=== PATIENT | female | born 1970 | race Caucasian/White ===

== ENCOUNTER 2017-10-26 16:53 | Emergency (ER) | payer MEDICARE ==
--- NOTE | 2017-10-26 17:58 | UC ---
Shoulder Pain HPI - HPI Summary HPI Summary: left shoulder pain for three days no known injury or trauma, she thinks she has been sleeping on it wrong, but cant move it well, mild swelling over the joint. denies need for pain medication. patient is also new to area and has run out of her BP meds. - History of Current Complaint Chief Complaint: UCUpperExtremity Stated Complaint: SHOULDER INJURY Time Seen by Provider: 10/26/17 17:49 Hx Obtained From: Patient Hx Last Menstrual Period: hysterectomy ?: No Onset/Duration: Sudden Onset, Lasting Days - 3 Timing: Constant Severity Initially: Severe Severity Currently: Severe Pain Intensity: 8 Aggravating Factor(s): Movement, Lifting, Flexion, Abduction Alleviating Factor(s): Nothing Associated Signs And Symptoms: Positive: Swelling, Weakness - Risk Factors DVT Risk Factors: Smoking - Allergies/Home Medications Allergies/Adverse Reactions: Allergies Allergy/AdvReac Type Severity Reaction Status Date / Time amoxicillin Allergy Intermediate Hives Verified 10/26/17 17:11 Penicillins Allergy Intermediate Hives Verified 10/26/17 17:11 PMH/Surg Hx/FS Hx/Imm Hx Previously Healthy: No Cardiovascular History: Hypertension - Surgical History Surgical History: Yes Surgery Procedure, Year, and Place: 8 back surguries - Social History Alcohol Use: Rare Substance Use Type: None Smoking Status (MU): Heavy Every Day Tobacco Smoker Length of Time of Smoking/Using Tobacco: 35 Review of Systems Constitutional: Negative Skin: Negative Eyes: Negative ENT: Negative Respiratory: Negative Cardiovascular: Negative Gastrointestinal: Negative Genitourinary: Negative Motor: Negative Neurovascular: Negative Musculoskeletal: Arthralgia, Decreased ROM, Edema, Myalgia Neurological: Negative Psychological: Negative Is Patient Immunocompromised?: No All Other Systems Reviewed And Are Negative: Yes Physical Exam Triage Information Reviewed: Yes Appearance: Ill-Appearing, Pain Distress, Obese Vital Signs: Initial Vital Signs Temp 97.1 F 10/26/17 17:03 Pulse 83 10/26/17 17:03 Resp 20 10/26/17 17:03 BP 186/119 10/26/17 17:03 Pulse Ox 99 10/26/17 17:03 Vital Signs Reviewed: Yes Eye Exam: Normal ENT Exam: Normal ENT: Positive: Pharyngeal erythema, TMs normal Dental Exam: Normal Dental: Positive: Abscess @ Neck: Positive: Supple, Nontender, No Lymphadenopathy Respiratory Exam: Normal Respiratory: Positive: Chest non-tender, Lungs clear, Normal breath sounds Cardiovascular Exam: Normal Cardiovascular: Positive: RRR, No Murmur, Pulses Normal Abdominal Exam: Normal Abdomen Description: Positive: Nontender, No Organomegaly, Soft Musculoskeletal: Positive: ROM Limited @ - in abd, flex, ext and ext rot of shoulder, int rotation not limited, Edema @ - mild edema over antieror delt Neurological Exam: Normal Psychological Exam: Normal Skin Exam: Normal Diagnostics - Radiology No standard instances Xray Interpretation: No Acute Changes Radiology Interpretation Completed By: Radiologist Shoulder Course/Dx - Course Course Of Treatment: hx obtained, exam performed ,meds reviewed, xray obtained negative - Differential Dx/Diagnosis Differential Diagnosis/HQI/PQRI: Contusion, Dislocation, Fracture (Closed), Sprain, Strain Provider Diagnoses: left deltoid strain Discharge - Sign-Out/Discharge Documenting (check all that apply): Patient Departure - Discharge Plan Condition: Stable Disposition: HOME Prescriptions: amLODIPine TAB* [Norvasc 5 mg TAB*] 5 mg PO DAILY #28 tab Lisinopril [Lisinopril 2.5 MG-] 2.5 mg PO DAILY #28 tablet Referrals: No Primary Care Phys,NOPCP [Primary Care Provider] - - Billing Disposition and Condition Condition: STABLE Disposition: Home
--- NOTE | 2017-10-26 18:14 | RAD ---
Indication: 3 days LEFT shoulder pain anteriorly sometimes radiating up the LEFT side of the neck and down the arm. Decreased range of motion. Comparison: No relevant prior exams available on the [facility] PACS for comparison. Technique: Internal rotation AP, external rotation Grashey, scapular Y, axillary views LEFT shoulder Report: Normal acromioclavicular and glenohumeral joint alignment. Negative for fracture or suspicious focal osseous lesions. Mild osteophytosis and joint space narrowing at the glenohumeral joint. Negative for calcific tendinopathy or abnormal soft tissue contour. IMPRESSION: #. Mild osteoarthritis at the glenohumeral joint.
== END 2017-10-26 18:34 | disposition home or self-care (01) ==
LOC: UCEAST 16:53
DX: S46.812A Strain of other muscles, fascia and tendons at shoulder and upper arm level, left arm, initial encounter (principal); I10 Essential (primary) hypertension; F17.200 Nicotine dependence, unspecified, uncomplicated; Z88.0 Allergy status to penicillin; X58.XXXA Exposure to other specified factors, initial encounter; Y92.9 Unspecified place or not applicable
CPT/HCPCS: 99201; G0463

== ENCOUNTER 2018-08-30 13:40 | Emergency (ER) | payer MEDICARE, MEDICAID ==
--- OUTSIDE RECORDS SUMMARY | 2018-08-30 13:49 | XMS REPORT | Continuity of Care Document ---
:1970 External Reference #:[id number] Author Name Zackary Lee N.P. Address [address] [facility] [address] [place] [address] Care Team Providers Name Role Phone Staci Colindres M.D. 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 Payers Date Identification Numbers Payment Provider Subscriber Policy Number: [id number] Medicare Roz Robins PayID: [id number] [address] [place] [address] Policy Number: [id number] Medicaid/[employer] Roz Robins PayID: [id number] [address] [place] [address] Advance Directives Description No Information Available Problems Description No Information Family History Date Family Member(s) Observation Comments General Hypertension General Diabetes General Lung Cancer Father due to Heart Attack () Father 60 Mother Hypertension Mother Diabetes Mother Obesity Mother Congestive Heart Failure Children 3 First Son 31 First Son No Current Problems Second Son 24 Second Son No Current Problems First Daughter 29 First Daughter Hepatitis Siblings 5 First Brother 50 First Brother Diabetes Second Brother Low B12 Second Brother 46 Second Brother Hypertension Third Brother 44 Third Brother No Current Problems First Sister 40 First Sister No Current Problems Second Sister Low B12 Second Sister 39 Grandchildren Many Grandfather Stroke Grandfather due to Stroke () Grandfather Hypertension Grandmother Dementia Grandmother Kidney Failure Social History Type Date Description Comments Sex Unknown Lives With Boyfriend 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 Tablets Fluconazole 1 tab by mouth 2tabs H65.23 [facility] 08/25/2018 150mg Tablets today and Repeat M., M.D. On Last Day Of Antibiotics Zolpidem Tartrate one tab po qhs 30tabs G47.00 [facility] 08/16/2018 5mg M., M.D. Tablets Quetiapine Fumarate 1 by mouth twice a 60tabs F31.9 [facility] 2018 25mg day M., M.D. Tablets Venlafaxine HCL one tab twice 30tabs F31.9 [facility] 08/16/2018 37.5mg daily M., M.D. Tablets Cyclobenzaprine HCL take one tablet by 90tabs [facility] 04/05/2018 10mg mouth three times M., M.D. Tablets a day as needed Omeprazole 1 by mouth every 30caps R10.84 [facility] 03/08/2018 40mg Capsules day M., M.D. DR Denis 1 by mouth every 30tabs J01.40 [facility] 02/08/2018 10mg Tablets day M., M.D. Acetaminophen 2 tab by mouth 180tabs M51.37 [facility] 12/08/2017 500mg three times a day M., M.D. Tablets as needed M79.606 R10.84 Amlodipine Besylate take one tablet by 90tabs I10 [facility], 2017 10mg mouth every day M.D. Tablets I73.00 Lisinopril Take One Tablet By 90tabs I10 [facility] 2.5mg Tablets Mouth Every Day M.D. Ventolin HFA inhale two puffs by 36units J44.9 [facility], 108(90Base) mouth every 4 hours M.D. mcg/Act Aerosol as needed Spiriva Handihaler inhale the contents 90caps J44.9 Jens, mad M., 18mcg of one capsule by M.DBabar Capsules mouth every day History Medications Acidophilus Probiotic 1 tab by mouth 42tabs J18.0 [facility]2018 - Complex three times a day M. MBabarDBabar 08/24/2018 Tablets a day after meals Cephalexin 1 tab by mouth 30tabs J18.0 [facility], [facility] 07/03/2018 - 500mg Tablets three times a day M. M.DBabar 08/24/2018 Ciprofloxacin HCL 1 tab by mouth 10tabs J18.0 [facility], [facility] 07/03/2018 - 750mg every day M.GinaDBabar 08/24/2018 Tablets Azithromycin 1 tab by mouth 10tabs J20.9 [facility], [facility] 06/09/2018 - 500mg every day x 10 M., GinaDBabar 08/24/2018 Tablets days Alprazolam 1 tab by mouth 3x 90tabs G47.00 [facility], [facility] 06/09/2018 - 0.5mg Tablets a day as needed MNadja Eckert 08/15/2018 Nicoderm CQ apply patch to 42units G47.00 J[facility], [facility] 05/19/2018 - 21mg/24HR skin in new area MNadja Eckert 08/24/2018 Patches 24HR daily after removal of old patch Alprazolam 1 tab by mouth 21tabs G47.00 [facility], [facility] 05/19/2018 - 0.5mg Tablets twice a day as M. MBabarDBabar 06/09/2018 needed Mucinex 1 tab by mouth 30tabs J20.9 [facility], [facility] 05/19/2018 - 600mg Tablets ER twice a day M.Nadja 08/24/2018 12HR Benzonatate 1 cap by mouth 60caps J20.9 [facility], [facility] 05/19/2018 - 100mg every 4 hours as MNadja Eckert 08/24/2018 Capsules needed AT Night Levaquin 1 by mouth every 10tabs J20.9 [facility], [facility] 05/19/2018 - 750mg Tablets day M., M.D. 06/08/2018 Nortriptyline HCL 2 cap by mouth at 60caps G47.00 [facility], [facility] 04/05/2018 - 50mg bedtime M., M.D. 05/18/2018 Capsules Methocarbamol 1 tab by mouth 90tabs M25.511 [facility], [facility] 04/05/2018 - 750mg three times a day M., M.D. 04/04/2018 Tablets as needed Azithromycin 1 tab by mouth 10tabs J20.9 [facility], [facility] 03/22/2018 - 500mg every day x 10 M., M.D. 04/04/2018 Tablets days Carafate 1 tab by mouth 90tabs R10.84 [facility], [facility] 03/08/2018 - 1gm Tablets three times a day M., M.D. 08/24/2018 before meals Nortriptyline HCL 1 cap by mouth at 30caps G47.00 [facility], [facility] 03/08/2018 - 75mg bedtime M., M.D. 04/05/2018 Capsules Magnesium Citrate 1 Bottle Equiv To 592ml K59.00 [facility], [facility] 03/01/2018 - Approx 300ML PO X M., M.D. 08/24/2018 1.745GM/30ML Solution Once If No BM In 4 Hours Repeat Benzonatate 1 cap by mouth 60caps J20.9 [facility], [facility] 02/15/2018 - 100mg every 4 hours as M., M.D. 03/07/2018 Capsules needed Senna S 2 tab by mouth 120tabs K59.00 [facility], [facility] 02/15/2018 - 8.6-50mg Tablets twice a day every M., M.D. 08/24/2018 evening Lactulose take 15 2838ml K59.00 [facility], [facility] 02/15/2018 - 10GM/15ML milliliters By M., M.D. 08/24/2018 Solution Mouth every day (maximum dose per day 15 ml) Azithromycin 1 tab by mouth 10tabs J20.9 [facility] 02/15/2018 - 500mg every day x 10 M., M.D. 02/25/2018 Tablets days Azithromycin z kimberly uad 6tabs J20.9 [facility] 02/08/2018 - 250mg M., M.D. 02/13/2018 Tablets Prednisone 2 tabs po qd x 3 21units J20.9 [facility] 02/08/2018 - 5mg (21) TBPK days then 1 tab po M., M.D. 03/07/2018 qd x one week , then one tab po qod for 2 weeks Trazodone HCL 04/19-1 tab by mouth 30tabs G47.00 [facility] 12/29/2017 - 100mg every night M., M.D. 03/08/2018 Tablets Cyclobenzaprine HCL 1 tab by mouth 90tabs M51.37 [facility] 12/08/2017 - 10mg three times a day M., M.D. 03/07/2018 Tablets as needed for muscle spasms M79.606 R10.84 Ibuprofen take one tablet 90tabs M51.37 Jens, aric M., - 600mg by mouth every 8 M.D. 03/07/2018 Tablets hours as needed for pain M79.606 R10.84 Amlodipine Besylate take one tablet [facility] 5[facility] mouth every day M.D. 12/08/2017 Tablets Immunizations Description No Information Available Vital Signs Date Vital Result Comment 08/25/2018 9:18am BP Systolic 122 mmHg BP Diastolic 78 mmHg Height 69 inches 5'9" Weight 200.00 lb BMI (Body Mass Index) 29.5 kg/m2 Heart Rate 68 /min Body Temperature 97.9 F Respiratory Rate 16 /min 08/16/2018 2:17pm BP Systolic 132 mmHg BP Diastolic 82 mmHg Height 69 inches 5'9" Weight 206.00 lb BMI (Body Mass Index) 30.4 kg/m2 Heart Rate 82 /min Respiratory Rate 18 /min 07/03/2018 3:18pm BP Systolic 118 mmHg BP Diastolic 70 mmHg Height 69 inches 5'9" Weight 206.00 lb BMI (Body Mass Index) 30.4 kg/m2 Heart Rate 86 /min Body Temperature 97.0 F Respiratory Rate 16 /min 06/09/2018 2:23pm BP Systolic 132 mmHg BP Diastolic 80 mmHg Height 69 inches 5'9" Weight 206.00 lb BMI (Body Mass Index) 30.4 kg/m2 Heart Rate 94 /min Body Temperature 97.4 F Respiratory Rate 16 /min 05/19/2018 2:34pm BP Systolic 128 mmHg BP Diastolic 68 mmHg Height 69 inches 5'9" Weight 204.00 lb BMI (Body Mass Index) 30.1 kg/m2 Heart Rate 74 /min Body Temperature 96.9 F Respiratory Rate 16 /min 04/05/2018 8:35am BP Systolic 128 mmHg BP Diastolic 86 mmHg Height 69 inches 5'9" Weight 191.00 lb BMI (Body Mass Index) 28.2 kg/m2 Heart Rate 84 /min Respiratory Rate 16 /min 03/08/2018 10:21am BP Systolic 110 mmHg BP Diastolic 72 mmHg Height 69 inches 5'9" Weight 187.00 lb BMI (Body Mass Index) 27.6 kg/m2 Heart Rate 87 /min Respiratory Rate 16 /min 03/01/2018 2:12pm BP Systolic 138 mmHg BP Diastolic 82 mmHg Height 69 inches 5'9" Weight 190.00 lb BMI (Body Mass Index) 28.1 kg/m2 Heart Rate 91 /min Respiratory Rate 16 /min 02/15/2018 9:16am BP Systolic 128 mmHg BP Diastolic 82 mmHg Height 69 inches 5'9" Weight 187.00 lb BMI (Body Mass Index) 27.6 kg/m2 Heart Rate 103 /min Body Temperature 97.5 F Respiratory Rate 16 /min 02/08/2018 9:30am BP Systolic 130 mmHg BP Diastolic 84 mmHg Height 69 inches 5'9" Weight 190.00 lb BMI (Body Mass Index) 28.1 kg/m2 Heart Rate 77 /min Body Temperature 97.6 F Respiratory Rate 16 /min 12/29/2017 9:10am BP Systolic 124 mmHg BP Diastolic 80 mmHg Height 69 inches 5'9" Weight 188.00 lb BMI (Body Mass Index) 27.8 kg/m2 Heart Rate 87 /min Respiratory Rate 16 /min 12/15/2017 9:20am BP Systolic 128 mmHg BP Diastolic 70 mmHg Height 69 inches 5'9" Weight 185.00 lb BMI (Body Mass Index) 27.3 kg/m2 Heart Rate 65 /min Respiratory Rate 16 /min 12/08/2017 10:19am BP Systolic 150 mmHg BP Diastolic 80 mmHg Height 69 inches 5'9" Weight 185.00 lb BMI (Body Mass Index) 27.3 kg/m2 Heart Rate 88 /min Respiratory Rate 14 /min Results Test Date Facility Test Result H/L Range Note Ethyl Glucuronide 08/16/2018 [facility] Ethyl Negative N 500 1 Glucuronide ng/mL PDF SEE IMAGE Laboratory test finding 08/16/2018 [facility] Tramadol Negative ng/mL N 5 2 Gabapentin Negative ng/mL N 100 3 Cyclobenzaprine Negative [facility] <SEE NOTE> ng/mL Abnormal 20 4 Zolpidem Negative [facility] <SEE NOTE> ng/mL Abnormal 10 5 Cotinine Negative [facility] <SEE NOTE> ng/mL Abnormal 500 6 Urine DRG SCR 08/16/2018 [facility] Amphetamine NEGATIVE N 1000 (12PNL-PM) Barbiturate NEGATIVE N 200 Benzodiazepine NEGATIVE N 200 Buprenorphine NEGATIVE N 15 Cannabinoid NEGATIVE N 50 Cocaine NEGATIVE N 300 Methadone NEGATIVE N 300 Opiate NEGATIVE N 300 Oxycodone NEGATIVE N 300 Phencyclidine NEGATIVE N 25 7 Cocaine Panel By 08/16/2018 [facility] Benzoylecgonine Negative ng/mL N 50 8 LC/MS/MS (Cocaine) Amphetamine Panel 08/16/2018 [facility] Amphetamine Negative ng/ mL N 50 By LC/MS/MS Methamphetamine Negative ng/mL N 50 Mdma (Ecstasy) Negative ng/mL N 50 Mda Negative ng/ml N 50 Mdea Negative ng/mL N 50 9 Specimen Validity 08/16/2018 [facility] Creatinine, Urine 17 mg/ dL Low >20 Panel Color YELLOW N Yellow pH 5.5 N 5.0-8.0 Specific [place] 1.005 N 1.001-1.035 10 Opiates Panel By 08/16/2018 [facility] 6-Xochilt (Heroin Negative ng/ mL N 5 LC/MS/MS Metabolite) Codeine Negative ng/mL N 50 Hydrocodone Negative ng/mL N 50 Hydromorphone Negative ng/mL N 50 Morphine Negative ng/mL N 50 Norhydrocodone Negative ng/mL N 50 Noroxycodone Negative ng/mL N 50 Noroxymorphone Negative ng/mL N 50 Oxycodone Negative ng/mL N 50 Oxymorphone Negative ng/mL N 50 11 Methadone Panel By 08/16/2018 [facility] Eddp Negative ng/mL N 10 LC/MS/MS Methadone Negative ng/mL N 10 12 Buprenorphine Panel By 08/16/2018 [facility] Buprenorphine Negative ng/mL N 5 LC/MS/MS Naloxone Negative ng/mL N 10 Norbuprenorphine Negative ng/mL N 5 13 Benzodiazepines 08/16/2018 [facility] 2-Hydroxyethylflurazepam Negative N 10 Panel By LC/MS/MS ng/mL 7-Aminoclonazepam Negative ng/mL N 10 Alprazolam 42 Positive [facility] <SEE NOTE> ng/mL Abnormal 10 14 Chlordiazepoxide Negative ng/mL N 10 Clonazepam Negative ng/mL N 10 Desalkylflurazepam Negative ng/mL N 10 Diazepam Negative ng/mL N 10 Lorazepam Negative ng/mL N 10 Midazolam Negative ng/ml N 10 Nordiazepam Negative ng/mL N 10 Alpha-hydroxyalprazolam 46 Positive [facility]co <SEE NOTE> ng/mL Abnormal 10 15 Alpha-Hydroxymidazolam Negative ng/mL N 10 Alpha-Hydroxytriazolam Negative ng/mL N 10 Oxazepam Negative ng/mL N 10 Prazepam Negative ng/mL N 10 Temazepam Negative ng/mL N 10 16 Barbiturates Panel By 08/16/2018 [facility] Butalbital Negative ng/mL N 100 LC/MS/MS Pentobarbital Negative ng/mL N 100 Phenobarbital Negative ng/mL N 100 Secobarbital Negative ng/mL N 100 17 Antidepressants Panel 08/16/2018 [facility] Amitriptyline Negative ng/mL N 20 By LC/MS/MS Clomipramine Negative ng/mL N 20 Desipramine Negative ng/mL N 20 Doxepin Negative ng/mL N 20 Fluoxetine Negative ng/mL N 20 Imipramine Negative ng/mL N 20 Norclomipramine Negative ng/mL N 20 Nordoxepin Negative ng/mL N 20 Nortriptyline Negative ng/mL N 20 Sertraline Negative ng/mL N 20 Trimipramine Negative ng/mL N 20 18 Urine Drug 08/16/2018 [facility] [id number] Negative N 5 19 [facility] ng/mL Laboratory test 05/01/2018 [facility] Clot[facility] SEE RESULT 20, 21 finding BELOW Laboratory test 05/01/2018 [facility] Surgical Pathology SEE RESULT 22, 23 finding BELOW BUN/Creat/GFR 03/02/2018 [facility] Poc Blood Urea 12 mg/dL N 8-26 Nitrogen Poc Creatinine 0.7 mg/dL N 0.6-1.3 24 Poc BUN/Creatinine Ratio 17.1 N 8-20 Egfr Non- 89.3 >60 Egfr 108.1 >60 25 Lipid Extended Panel 12/15/2017 [facility] Appearance CLEAR (Clear) [address] (607)- - Cholesterol @ 159 mg/dL (0-200) Triglyceride @ 185 mg/dL (30-200) HDL Cholesterol @ 31 mg/dL Low (>40) 26 Chol/HDL Ratio 5.1 RATIO 27 Direct LDL @ 105 mg/dL (<130) 28 VLDL (Calc) 23 mg/dL (0-30) Laboratory test finding 12/15/2017 [facility] Esr 3 mm/h (0-20) [address] (607)- - 25 Hydroxy Vit D @ 28 ng/mL Low (31-100) 29 Laboratory 12/15/2017 [facility] TSH,Ultrasensitive @ 1.220 (0.360- 4.170) test finding [address] mIU/L (607)- - CMP 12/15/2017 [facility] Sodium 143 (136-145) [address] mmol/L (607)- - Potassium 3.8 mmol/L (3.6-5.2) Chloride 107 mmol/L (100-108) Co2 30 mmol/L (22-31) Anion Gap 6 mmol/L Low (7-16) Urea Nitrogen 10 mg/dL (7-24) Creatinine 0.71 mg/dL (0.60-1.00) BUN/Creat Ratio 14.1 RATIO (10.0-20.0) Glucose 80 mg/dL (70-99) Calcium 8.8 mg/dL (8.4-10.2) Total Protein 6.6 g/dL (6.4-8.2) Albumin 3.7 g/dL (3.5-4.6) Globulin 2.9 g/dL (2.7-4.3) Alb/Glob Ratio 1.3 RATIO Alkaline Phosphatase 83 U/L (45-117) Bilirubin,Total 0.3 mg/dL (0.0-1.0) Ast (Sgot) 14 U/L (11-39) Alt (SGPT) 23 U/L (12-78) GFR >60 ml/min/1.73m2 (>59) GFR ( Amer) >60 ml/min/1.73m2 (>59) GFR Interpretation <SEE NOTE> 30 CBC With Diff 12/15/2017 [facility] WBC 6.6 10*3/uL (4.1-11.0) [address] (607)- - RBC 4.24 10*6/uL (4.00-5.40) HGB 12.6 g/dL (12.0-16.0) HCT 37.5 % (36.0-47.0) MCV 88.4 fL (80.0-95.0) MCH 29.6 pg (27.0-32.0) MCHC 33.5 g/dL (32.0-36.0) RDW 15.6 % High (10.5-14.5) PLT 310 10*3/uL (150-450) MPV 8.3 fL (7.1-10.7) Neut % 58.7 % (35.0-75.0) Lymph % 29.6 % (16.0-52.0) [place] % 6.8 % (0.0-8.0) Eos % 3.8 % (0.0-5.0) Baso % 1.1 % (0.0-4.0) Neut # 3.9 10*3/uL (1.8-7.7) Lymph # 2.0 10*3/uL (1.2-4.8) [place] # 0.4 10*3/uL (0.0-0.8) Eos # 0.3 10*3/uL (0.0-0.5) Baso # 0.1 10*3/uL (0.0-0.2) 1 Prescribed Medications: Cyclobenzaprine (Cyclobenzaprine), Zolpidem ( Zolpidem), Acetaminophen (Acetaminophen), NicoDerm (Cotinine), LISINOPRIL, AMLODIPINE BESYLATE, BENZONATATE, LACTULOSE, ALBUTEROL, OMEPRAZOLE, CEPHALEXIN, SPIRIVA 2 Prescribed Medications: Cyclobenzaprine (Cyclobenzaprine), Zolpidem ( Zolpidem), Acetaminophen (Acetaminophen), NicoDerm (Cotinine), LISINOPRIL, AMLODIPINE BESYLATE, BENZONATATE, LACTULOSE, ALBUTEROL, OMEPRAZOLE, CEPHALEXIN, SPIRIVA 3 Prescribed Medications: Cyclobenzaprine (Cyclobenzaprine), Zolpidem ( Zolpidem), Acetaminophen (Acetaminophen), NicoDerm (Cotinine), LISINOPRIL, AMLODIPINE BESYLATE, BENZONATATE, LACTULOSE, ALBUTEROL, OMEPRAZOLE, CEPHALEXIN, SPIRIVA 4 Negative Inconsistent Prescribed Medications: Cyclobenzaprine (Cyclobenzaprine), Zolpidem (Zolpidem ), Acetaminophen (Acetaminophen), NicoDerm (Cotinine), LISINOPRIL, AMLODIPINE BESYLATE, BENZONATATE, LACTULOSE, ALBUTEROL, OMEPRAZOLE, CEPHALEXIN, SPIRIVA 5 Negative Inconsistent Prescribed Medications: Cyclobenzaprine (Cyclobenzaprine), Zolpidem (Zolpidem ), Acetaminophen (Acetaminophen), NicoDerm (Cotinine), LISINOPRIL, AMLODIPINE BESYLATE, BENZONATATE, LACTULOSE, ALBUTEROL, OMEPRAZOLE, CEPHALEXIN, SPIRIVA 6 Negative Inconsistent Prescribed Medications: Cyclobenzaprine (Cyclobenzaprine), Zolpidem (Zolpidem ), Acetaminophen (Acetaminophen), NicoDerm (Cotinine), LISINOPRIL, AMLODIPINE BESYLATE, BENZONATATE, LACTULOSE, ALBUTEROL, OMEPRAZOLE, CEPHALEXIN, SPIRIVA 7 Prescribed Medications: Cyclobenzaprine (Cyclobenzaprine), Zolpidem ( Zolpidem), Acetaminophen (Acetaminophen), NicoDerm (Cotinine), LISINOPRIL, AMLODIPINE BESYLATE, BENZONATATE, LACTULOSE, ALBUTEROL, OMEPRAZOLE, CEPHALEXIN, SPIRIVA 8 Prescribed Medications: Cyclobenzaprine (Cyclobenzaprine), Zolpidem ( Zolpidem), Acetaminophen (Acetaminophen), NicoDerm (Cotinine), LISINOPRIL, AMLODIPINE BESYLATE, BENZONATATE, LACTULOSE, ALBUTEROL, OMEPRAZOLE, CEPHALEXIN, SPIRIVA 9 Prescribed Medications: Cyclobenzaprine (Cyclobenzaprine), Zolpidem ( Zolpidem), Acetaminophen (Acetaminophen), NicoDerm (Cotinine), LISINOPRIL, AMLODIPINE BESYLATE, BENZONATATE, LACTULOSE, ALBUTEROL, OMEPRAZOLE, CEPHALEXIN, SPIRIVA 10 Prescribed Medications: Cyclobenzaprine (Cyclobenzaprine), Zolpidem ( Zolpidem), Acetaminophen (Acetaminophen), NicoDerm (Cotinine), LISINOPRIL, AMLODIPINE BESYLATE, BENZONATATE, LACTULOSE, ALBUTEROL, OMEPRAZOLE, CEPHALEXIN, SPIRIVA 11 Prescribed Medications: Cyclobenzaprine (Cyclobenzaprine), Zolpidem ( Zolpidem), Acetaminophen (Acetaminophen), NicoDerm (Cotinine), LISINOPRIL, AMLODIPINE BESYLATE, BENZONATATE, LACTULOSE, ALBUTEROL, OMEPRAZOLE, CEPHALEXIN, SPIRIVA 12 Prescribed Medications: Cyclobenzaprine (Cyclobenzaprine), Zolpidem ( Zolpidem), Acetaminophen (Acetaminophen), NicoDerm (Cotinine), LISINOPRIL, AMLODIPINE BESYLATE, BENZONATATE, LACTULOSE, ALBUTEROL, OMEPRAZOLE, CEPHALEXIN, SPIRIVA 13 Prescribed Medications: Cyclobenzaprine (Cyclobenzaprine), Zolpidem ( Zolpidem), Acetaminophen (Acetaminophen), NicoDerm (Cotinine), LISINOPRIL, AMLODIPINE BESYLATE, BENZONATATE, LACTULOSE, ALBUTEROL, OMEPRAZOLE, CEPHALEXIN, SPIRIVA 14 42 Positive Inconsistent 15 46 Positive Inconsistent Alpha-hydroxyalprazolam is a metabolite of Alprazolam (Xanax). 16 Prescribed Medications: Cyclobenzaprine (Cyclobenzaprine), Zolpidem ( Zolpidem), Acetaminophen (Acetaminophen), NicoDerm (Cotinine), LISINOPRIL, AMLODIPINE BESYLATE, BENZONATATE, LACTULOSE, ALBUTEROL, OMEPRAZOLE, CEPHALEXIN, SPIRIVA 17 Prescribed Medications: Cyclobenzaprine (Cyclobenzaprine), Zolpidem ( Zolpidem), Acetaminophen (Acetaminophen), NicoDerm (Cotinine), LISINOPRIL, AMLODIPINE BESYLATE, BENZONATATE, LACTULOSE, ALBUTEROL, OMEPRAZOLE, CEPHALEXIN, SPIRIVA 18 Prescribed Medications: Cyclobenzaprine (Cyclobenzaprine), Zolpidem ( Zolpidem), Acetaminophen (Acetaminophen), NicoDerm (Cotinine), LISINOPRIL, AMLODIPINE BESYLATE, BENZONATATE, LACTULOSE, ALBUTEROL, OMEPRAZOLE, CEPHALEXIN, SPIRIVA 19 Prescribed Medications: Cyclobenzaprine (Cyclobenzaprine), Zolpidem ( Zolpidem), Acetaminophen (Acetaminophen), NicoDerm (Cotinine), LISINOPRIL, AMLODIPINE BESYLATE, BENZONATATE, LACTULOSE, ALBUTEROL, OMEPRAZOLE, CEPHALEXIN, SPIRIVA 20 [id number] 21 SEE RESULT BELOW Name: ROZ ROBINS : [address]: Wm East MD Acct: [id number] Unit: [id number] AGE: 47 Location: ENDOC Re05/01/18 SEX: F Status: DEP REF SPEC: [id number] [place]: 05/01/18-101[address] [facility] [address]: Wm East MD REQ: [id number] RECD: 05/01/18-1221 STATUS: ROCIO FREEMAN DR: Staci Colindres MD _ SOURCE: AXEL LAU [facility]: ORDERED: [place] COMMENTS: [id number] Procedure Result Reported Site Clotest Final 05/02/18- 43 ML Clotest Negative * ML - Main Lab . END OF REPORT DEPARTMENT OF PATHOLOGY, [address] [place] [address] Gian Mclain M.D. 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 Addendum Signed (signature on file) Gian Mclain MD 1133 FINAL DIAGNOSIS 1. Stomach, antrum, biopsy: -- Antral-type gastric mucosa with marked chronic gastritis, reactive chemical gastropathy, and surface erosion. -- No evidence of Helicobacter organisms; see comment. 2. Colon, sigmoid, biopsy: -- Tubular adenoma. -- No high grade dysplasia or malignancy. COMMENT: An H. pylori immunohistochemical stain is pending for specimen 1 and the results will be reported in an addendum. POST-OPERATIVE DIAGNOSIS EGD: larynx - normal; esophagus - normal to 42 cm; stomach: antral ulcers (2 ) plus gastritis, biopsy (3); duodenum - normal; colonoscopy: to cecum - difficult, nodule at 20 cm; conclusions: gastric ulcers; sigmoid polyp; pain-unknown; constipation CONTINUED ON NEXT PAGE DEPARTMENT OF PATHOLOGY, [address] [place] [address] Gian Mclain M.D. Director [facility] # [id number] RUN DATE: 05/03/18 [facility] LAB LIVE PAGE 2 Patient: ROZ ROBINS [id number] (Continued) GROSS DESCRIPTION (Continued) GROSS DESCRIPTION 1. The specimen is received in formalin labeled, Biopsy Gastric Antral Ulcer, and consists of a 0.6 x 0.5 x 0.2 cm aggregate of modi-red irregular soft tissue fragments which is submitted entirely in one cassette. 2. The specimen is received in formalin labeled, Biopsy Sigmoid Colon Polyp , and consists of a 0.5 by up to 0.3 x 0.2 cm aggregate of modi-pink irregular to polypoid soft tissue fragments which is submitted entirely in one cassette. Signed by and Reported on: Sugey Barbour MD 05/02/18 1123 END OF REPORT DEPARTMENT OF PATHOLOGY, [address] [place] [address] Gian Mclain M.D. Director [facility] # [id number] 24 [employer] [place]: [id number] 25 Because ethnic data is not always readily available, this report includes an eGFR for both -Americans and non- Americans. The National Kidney Disease Education Program (NKDEP) does not endorse the use of the MDRD equation for patients that are not between the ages of 18 and 70, are , have extremes of body size, muscle mass, or nutritional status, or are non- or non-. According to the National Kidney Foundation, irrespective of diagnosis, the stage of the disease is based on the level of kidney function: Stage Description GFR(mL/min/1.73 m(2)) 1 Kidney damage with normal or decreased GFR 90 2 Kidney damage with mild decrease in GFR 60-89 3 Moderate decrease in GFR 30-59 4 Severe decrease in GFR 15-29 5 Kidney failure <15 (or dialysis) 26 PER NCEP ATP III GUIDELINES: RESULTS LOWER THAN 40 MG/DL ARE SUGGESTIVE OF INCREASED RISK FOR CORONARY ARTERY DISEASE. RESULTS > OR=TO 60 MG/DL ARE CONSIDERED A NEGATIVE RISK FACTOR. 27 INTERPRETATION OF CHOL-HDL RATIO CHD RISK FEMALE MALE VERY HIGH >8.3 >14.3 HIGH 5.6- 8.3 6.7- 14.3 AVERAGE 3.7- 5.6 4.0- 6.7 BELOW AVERAGE 2.5- 3.7 2.7- 4.0 PROTECTED <2.5 <2.7 28 PER NCEP ATP III GUIDELINES: OPTIMAL < 100 NEAR OPTIMAL 100 - 129 BORDERLINE HIGH 130 - 159 HIGH 160 - 189 VERY HIGH > 189 29 A REVIEW OF THE LITERATURE SUGGESTS THE FOLLOWING RANGES FOR THE CLASSIFICATION OF 25-OH VITAMIN D STATUS: VITAMIN D STATUS 25-OH VITAMIN D DEFICIENCY <20 NG/ML INSUFFICIENCY 20-30 NG/ML SUFFICIENCY 31 - 100 NG/ML TOXICITY > 100 NG/ML A PEDIATRIC REFERENCE RANGE HAS NOT BEEN ESTABLISHED USING THIS METHOD. 30 NORMAL KIDNEY FUNCTION OR MILD DISEASE - GFR >OR=60 CHRONIC KIDNEY DISEASE - GFR 15 - 59 RENAL FAILURE - GFR <15 Est. GFR calculation based on the MDRD study equation, which assumes a steady state for creatinine. Est. GFR should not be used for medication dosing. Procedures Date Code Description Status 08/25/2018 73660 Tympanometry Completed 07/03/2018 38768 Spirometry Completed 07/03/2018 61486 Tympanometry Completed 06/09/2018 33686 Spirometry Completed 06/09/2018 93384 Tympanometry Completed 05/19/2018 39799 Spirometry Completed 05/19/2018 56405 Tympanometry Completed 02/15/2018 65549 Tympanometry Completed 02/15/2018 14085 Tympanometry Completed 02/15/2018 26192 Spirometry Completed 02/15/2018 82444 Spirometry Completed 02/08/2018 40341 Spirometry Completed 02/08/2018 84382 Tympanometry Completed 12/08/2017 68576 Visual Screening Test Completed 12/08/2017 92274 EKG Completed 12/08/2017 27543 Audiometry, [place], Screening Completed 04/18/2012 [id number] Colonoscopy Completed Encounters Type Date Location Provider Dx Diagnosis Office Visit 08/25/2018 [facility] Zackary Lee, R10.84 Generalized 9:45a N.P. abdominal pain K59.00 Constipation, unspecified J44.1 Chronic obstructive pulmonary disease w (acute) exacerbation H92.03 Otalgia, bilateral H66.93 Otitis media, unspecified, bilateral R05 Cough J20.9 Acute bronchitis, unspecified E78.2 Mixed hyperlipidemia R06.02 Shortness of breath M79.606 Pain in leg, unspecified M51.37 Other intervertebral disc degeneration, lumbosacral region M54.17 Radiculopathy, lumbosacral region M15.9 Polyosteoarthritis, unspecified F17.210 Nicotine dependence, cigarettes, uncomplicated G47.00 Insomnia, unspecified K30 Functional dyspepsia F10.21 Alcohol dependence, in remission L20.9 Atopic dermatitis, unspecified J30.9 Allergic rhinitis, unspecified M25.522 Pain in left elbow E55.9 Vitamin D deficiency, unspecified I45.10 Unspecified right bundle-branch block M25.511 Pain in right shoulder F31.9 Bipolar disorder, unspecified H65.23 Chronic serous otitis media, bilateral Office Visit 08/16/2018 2:45p [facility] Zackary Lee, R10.84 Generalized N.P. abdominal pain K59.00 Constipation, unspecified J44.1 Chronic obstructive pulmonary disease w (acute) exacerbation H92.03 Otalgia, bilateral H66.93 Otitis media, unspecified, bilateral R05 Cough J20.9 Acute bronchitis, unspecified E78.2 Mixed hyperlipidemia R06.02 Shortness of breath M79.606 Pain in leg, unspecified M51.37 Other intervertebral disc degeneration, lumbosacral region M54.17 Radiculopathy, lumbosacral region M15.9 Polyosteoarthritis, unspecified F17.210 Nicotine dependence, cigarettes, uncomplicated G47.00 Insomnia, unspecified K30 Functional dyspepsia F10.21 Alcohol dependence, in remission L20.9 Atopic dermatitis, unspecified J30.9 Allergic rhinitis, unspecified M25.522 Pain in left elbow E55.9 Vitamin D deficiency, unspecified I45.10 Unspecified right bundle-branch block M25.511 Pain in right shoulder F31.9 Bipolar disorder, unspecified Office Visit 07/03/2018 3:15p [facility] Zackary Lee, R10.84 Generalized N.P. abdominal pain K59.00 Constipation, unspecified J44.1 Chronic obstructive pulmonary disease w (acute) exacerbation H92.03 Otalgia, bilateral H66.93 Otitis media, unspecified, bilateral J01.40 Acute pansinusitis, unspecified R05 Cough J20.9 Acute bronchitis, unspecified E78.2 Mixed hyperlipidemia R06.02 Shortness of breath M79.606 Pain in leg, unspecified M51.37 Other intervertebral disc degeneration, lumbosacral region M54.17 Radiculopathy, lumbosacral region M15.9 Polyosteoarthritis, unspecified F17.210 Nicotine dependence, cigarettes, uncomplicated G47.00 Insomnia, unspecified K30 Functional dyspepsia F10.21 Alcohol dependence, in remission L20.9 Atopic dermatitis, unspecified J30.9 Allergic rhinitis, unspecified M25.522 Pain in left elbow E55.9 Vitamin D deficiency, unspecified I45.10 Unspecified right bundle-branch block M25.511 Pain in right shoulder J18.0 Bronchopneumonia, unspecified organism Office Visit 06/09/2018 2:30p [facility] Zackary Lee, R10.84 Generalized N.P. abdominal pain K59.00 Constipation, unspecified J44.1 Chronic obstructive pulmonary disease w (acute) exacerbation H92.03 Otalgia, bilateral H66.93 Otitis media, unspecified, bilateral J01.40 Acute pansinusitis, unspecified R05 Cough J20.9 Acute bronchitis, unspecified E78.2 Mixed hyperlipidemia R06.02 Shortness of breath M79.606 Pain in leg, unspecified M51.37 Other intervertebral disc degeneration, lumbosacral region M54.17 Radiculopathy, lumbosacral region M15.9 Polyosteoarthritis, unspecified F17.210 Nicotine dependence, cigarettes, uncomplicated G47.00 Insomnia, unspecified K30 Functional dyspepsia F10.21 Alcohol dependence, in remission L20.9 Atopic dermatitis, unspecified J30.9 Allergic rhinitis, unspecified M25.522 Pain in left elbow E55.9 Vitamin D deficiency, unspecified I45.10 Unspecified right bundle-branch block M25.511 Pain in right shoulder Office Visit 05/19/2018 2:45p [facility] Zackary Lee, R10.84 Generalized N.P. abdominal pain K59.00 Constipation, unspecified J44.1 Chronic obstructive pulmonary disease w (acute) exacerbation H92.03 Otalgia, bilateral H66.93 Otitis media, unspecified, bilateral J01.40 Acute pansinusitis, unspecified R05 Cough J20.9 Acute bronchitis, unspecified E78.2 Mixed hyperlipidemia R06.02 Shortness of breath M79.606 Pain in leg, unspecified M51.37 Other intervertebral disc degeneration, lumbosacral region M54.17 Radiculopathy, lumbosacral region M15.9 Polyosteoarthritis, unspecified F17.210 Nicotine dependence, cigarettes, uncomplicated G47.00 Insomnia, unspecified K30 Functional dyspepsia F10.21 Alcohol dependence, in remission L20.9 Atopic dermatitis, unspecified J30.9 Allergic rhinitis, unspecified M25.522 Pain in left elbow E55.9 Vitamin D deficiency, unspecified I45.10 Unspecified right bundle-branch block M25.511 Pain in right shoulder Office Visit 04/05/2018 8:45a [facility] Zackary Lee, R10.84 Generalized N.P. abdominal pain K59.00 Constipation, unspecified J44.1 Chronic obstructive pulmonary disease w (acute) exacerbation H92.03 Otalgia, bilateral H66.93 Otitis media, unspecified, bilateral J01.40 Acute pansinusitis, unspecified R05 Cough J20.9 Acute bronchitis, unspecified E78.2 Mixed hyperlipidemia M79.606 Pain in leg, unspecified M51.37 Other intervertebral disc degeneration, lumbosacral region M54.17 Radiculopathy, lumbosacral region M15.9 Polyosteoarthritis, unspecified F17.210 Nicotine dependence, cigarettes, uncomplicated G47.00 Insomnia, unspecified K30 Functional dyspepsia F10.21 Alcohol dependence, in remission L20.9 Atopic dermatitis, unspecified J30.9 Allergic rhinitis, unspecified M25.522 Pain in left elbow E55.9 Vitamin D deficiency, unspecified I45.10 Unspecified right bundle-branch block M25.511 Pain in right shoulder Office Visit 03/08/2018 10:30a [facility] Zackary Lee, R10.84 Generalized N.P. abdominal pain K59.00 Constipation, unspecified J44.1 Chronic obstructive pulmonary disease w (acute) exacerbation H92.03 Otalgia, bilateral H66.93 Otitis media, unspecified, bilateral J01.40 Acute pansinusitis, unspecified R05 Cough J20.9 Acute bronchitis, unspecified E78.2 Mixed hyperlipidemia M79.606 Pain in leg, unspecified M51.37 Other intervertebral disc degeneration, lumbosacral region M54.17 Radiculopathy, lumbosacral region M25.512 Pain in left shoulder M15.9 Polyosteoarthritis, unspecified F17.210 Nicotine dependence, cigarettes, uncomplicated G47.00 Insomnia, unspecified K30 Functional dyspepsia F10.21 Alcohol dependence, in remission L20.9 Atopic dermatitis, unspecified J30.9 Allergic rhinitis, unspecified M25.522 Pain in left elbow E55.9 Vitamin D deficiency, unspecified I45.10 Unspecified right bundle-branch block Office Visit 03/01/2018 2:30p [facility] Zackary Lee, R10.84 Generalized N.P. abdominal pain K59.00 Constipation, unspecified J44.1 Chronic obstructive pulmonary disease w (acute) exacerbation H92.03 Otalgia, bilateral H66.93 Otitis media, unspecified, bilateral J01.40 Acute pansinusitis, unspecified R05 Cough J20.9 Acute bronchitis, unspecified E78.2 Mixed hyperlipidemia M79.606 Pain in leg, unspecified M51.37 Other intervertebral disc degeneration, lumbosacral region M54.17 Radiculopathy, lumbosacral region M25.512 Pain in left shoulder M15.9 Polyosteoarthritis, unspecified F17.210 Nicotine dependence, cigarettes, uncomplicated G47.00 Insomnia, unspecified K30 Functional dyspepsia F10.21 Alcohol dependence, in remission L20.9 Atopic dermatitis, unspecified J30.9 Allergic rhinitis, unspecified M25.522 Pain in left elbow E55.9 Vitamin D deficiency, unspecified I45.10 Unspecified right bundle-branch block Office Visit 02/15/2018 9:30a [facility] Zackary Lee, M25.522 Pain in left N.P. elbow E55.9 Vitamin D deficiency, unspecified I45.10 Unspecified right bundle-branch block I73.00 Raynaud's syndrome without gangrene J30.9 Allergic rhinitis, unspecified L20.9 Atopic dermatitis, unspecified F10.21 Alcohol dependence, in remission K30 Functional dyspepsia G47.00 Insomnia, unspecified F33.9 Major depressive disorder, recurrent, unspecified F41.9 Anxiety disorder, unspecified Z90.710 Acquired absence of both cervix and uterus F17.210 Nicotine dependence, cigarettes, uncomplicated M15.9 Polyosteoarthritis, unspecified M25.512 Pain in left shoulder M54.17 Radiculopathy, lumbosacral region M51.37 Other intervertebral disc degeneration, lumbosacral region M79.606 Pain in leg, unspecified E78.2 Mixed hyperlipidemia J20.9 Acute bronchitis, unspecified R05 Cough J01.40 Acute pansinusitis, unspecified H66.93 Otitis media, unspecified, bilateral H92.03 Otalgia, bilateral J44.1 Chronic obstructive pulmonary disease w (acute) exacerbation K59.00 Constipation, unspecified R10.84 Generalized abdominal pain Office Visit 02/08/2018 9:30a [facility] Zackary Lee, M25.522 Pain in left N.P. elbow E55.9 Vitamin D deficiency, unspecified I45.10 Unspecified right bundle-branch block I73.00 Raynaud's syndrome without gangrene J30.9 Allergic rhinitis, unspecified L20.9 Atopic dermatitis, unspecified F10.21 Alcohol dependence, in remission K30 Functional dyspepsia K59.00 Constipation, unspecified G47.00 Insomnia, unspecified F33.9 Major depressive disorder, recurrent, unspecified F41.9 Anxiety disorder, unspecified Z90.710 Acquired absence of both cervix and uterus F17.210 Nicotine dependence, cigarettes, uncomplicated M15.9 Polyosteoarthritis, unspecified M25.512 Pain in left shoulder M54.17 Radiculopathy, lumbosacral region M51.37 Other intervertebral disc degeneration, lumbosacral region M79.606 Pain in leg, unspecified E78.2 Mixed hyperlipidemia I10 Essential (primary) hypertension J20.9 Acute bronchitis, unspecified R05 Cough J01.40 Acute pansinusitis, unspecified H66.93 Otitis media, unspecified, bilateral H92.03 Otalgia, bilateral J44.1 Chronic obstructive pulmonary disease w (acute) exacerbation Z28.82 Immunization not carried out because of caregiver refusal Office Visit 12/29/2017 9:15a [facility] Staci Colindres I10 Essential ( primary) Nadja Fuentes hypertension E78.2 Mixed hyperlipidemia J44.9 Chronic obstructive pulmonary disease, unspecified M51.37 Other intervertebral disc degeneration, lumbosacral region M54.17 Radiculopathy, lumbosacral region M79.606 Pain in leg, unspecified M25.512 Pain in left shoulder M15.9 Polyosteoarthritis, unspecified F17.210 Nicotine dependence, cigarettes, uncomplicated Z90.710 Acquired absence of both cervix and uterus F41.9 Anxiety disorder, unspecified F33.9 Major depressive disorder, recurrent, unspecified G47.00 Insomnia, unspecified K59.00 Constipation, unspecified R10.13 Epigastric pain K21.0 Gastro-esophageal reflux disease with esophagitis K30 Functional dyspepsia F10.21 Alcohol dependence, in remission L20.9 Atopic dermatitis, unspecified J30.9 Allergic rhinitis, unspecified I73.00 Raynaud's syndrome without gangrene I45.10 Unspecified right bundle-branch block E55.9 Vitamin D deficiency, unspecified M25.522 Pain in left elbow Office Visit 12/15/2017 10:00a [facility] galod I10 Essential ( primary) Nadja Fuentes hypertension E78.2 Mixed hyperlipidemia J44.9 Chronic obstructive pulmonary disease, unspecified M51.37 Other intervertebral disc degeneration, lumbosacral region M54.17 Radiculopathy, lumbosacral region M79.606 Pain in leg, unspecified M25.512 Pain in left shoulder M15.9 Polyosteoarthritis, unspecified F17.210 Nicotine dependence, cigarettes, uncomplicated Z90.710 Acquired absence of both cervix and uterus F41.9 Anxiety disorder, unspecified F33.9 Major depressive disorder, recurrent, unspecified G47.00 Insomnia, unspecified K59.00 Constipation, unspecified R10.13 Epigastric pain K21.0 Gastro-esophageal reflux disease with esophagitis K30 Functional dyspepsia F10.21 Alcohol dependence, in remission L20.9 Atopic dermatitis, unspecified J30.9 Allergic rhinitis, unspecified I73.00 Raynaud's syndrome without gangrene I45.10 Unspecified right bundle-branch block E55.9 Vitamin D deficiency, unspecified M25.522 Pain in left elbow [facility] Nadja Fuentes hypertension E78.2 Mixed hyperlipidemia J44.9 Chronic obstructive pulmonary disease, unspecified M51.37 Other intervertebral disc degeneration, lumbosacral region M54.17 Radiculopathy, lumbosacral region M79.606 Pain in leg, unspecified M25.512 Pain in left shoulder M15.9 Polyosteoarthritis, unspecified F17.210 Nicotine dependence, cigarettes, uncomplicated Z90.710 Acquired absence of both cervix and uterus F41.9 Anxiety disorder, unspecified F33.9 Major depressive disorder, recurrent, unspecified G47.00 Insomnia, unspecified K59.00 Constipation, unspecified R10.13 Epigastric pain K21.0 Gastro-esophageal reflux disease with esophagitis K30 Functional dyspepsia F10.21 Alcohol dependence, in remission Z12.31 Encntr screen mammogram for malignant neoplasm of breast L20.9 Atopic dermatitis, unspecified J30.9 Allergic rhinitis, unspecified I73.00 Raynaud's syndrome without gangrene I45.10 Unspecified right bundle-branch block Z00.01 Encounter for general adult medical exam w abnormal findings Z68.27 Body mass index (BMI) 27.0-27.9, adult Plan of Treatment 08/25/2018 - Zackary Lee N.P.R10.84 Generalized abdominal painComments: GPESFOVQN18.00 Constipation, unspecifiedComments:MOM OR MIRALAX PRNHIGH FIBER DIETINCREASE PO EEXPKC28.1 Chronic obstructive pulmonary disease with (acute) exacerbatComments:INCREASE PO BEWOBIFXOV80.03 Otalgia, bilateralComments: INCREASE PO FLUIDTYLENOL OR MOTRIN PRNANTIHISTAMINE NTESUWIM90.93 Otitis media, unspecified, bilateralComments:INCREASE PO FLUID TYLENOL OR MOTRIN PRN ANTIHISTAMINE PRNR05 CoughComments:INCREASE CLEAR LIQUIDSSTEAMGARGLE WARM SALT H2O TID ROBITUSSIN DM PRNJ20.9 Acute bronchitis, rmprqrnrdzxF98.2 Mixed hyperlipidemiaComments:DIET REVIEWED CONTINUE DIETWT LOSSF/U LAB FBWR06.02 Shortness of hveopuJ95.606 Pain in leg, unspecifiedComments:TYLENOL OR MOTRIN PRN EXERCISE/HEAT/MESSAGE DUR PMHNPBPC97.37 Other intervertebral disc degeneration, lumbosacral regionComments:EXERCISE/HEAT /MESSAGEAVOID HEAVY LIFTING WT LOSSTYLENOL OR MOTRIN PRN DUR SISKJHQK42.17 Radiculopathy, lumbosacral regionComments:EXERCISE/HEAT /MESSAGE AVOID HEAVY LIFTING WT LOSS TYLENOL OR MOTRIN PRN DUR POUAVDCH63.9 Polyosteoarthritis, unspecifiedComments :EXERCISE/HEAT/MESSAGETYLENOL OR MOTRIN PRNAVOID HEAVY LIFTINGWT LOSS DUR XAWYJPDD77.210 Nicotine dependence, cigarettes, uncomplicatedComments:SMOKING CESSATION ZNIVQVQBXFEU91.00 Insomnia, unspecifiedComments:COUNCELLING AND REASSURANCE RELAXATION TECHNIQUES DISCUSSED COUNSELED RE: STRESSORS IN LIFE TYLENOLPM OR MOTRIN PM PRN DUR [id number] Functional dyspepsiaComments:AVOID CAFFEINE, ETOH AND SPICY FOODSTUMS OR MYLANTA PRN CALL WITH PROBLEMS OR CONCERNSTOBACCO USE USWSNNCOAQ83.21 Alcohol dependence, in remissionComments: OBSERVE COUNCELLING AND REASSURANCEF/U WITH MHC/AAA PRNL20.9 Atopic dermatitis , unspecifiedComments:SKIN CARE INSTRUCTIONS LOTION OR BABY OIL 2-3 APPLICATION PER DAYUSE MOISTURIZING SOAPAVOID PROLONGED WATER EXPOSUREAVOID USING HOT WATER IN QZAZXSE02.9 Allergic rhinitis, unspecifiedComments:INCREASE PO FLUID USE ANTIHISTAMINE PRN SECOND HAND SMOKING AVOIDANCE SMOKING COXLOLDXMW49.522 Pain in left elbowComments:IMESSFNIJ12.9 Vitamin D deficiency, unspecifiedComments:INCREASE EXPOSURE TO SUNREVIEW OF DIETI45.10 Unspecified right bundle-branch blockComments:STABLE AND ASYMPTOMATICF/U WITH CARDIOLOGY PRNM25.511 Pain in right shoulderComments:EXERCISE/HEAT /MESSAGE AVOID HEAVY LIFTINGTYLENOL OR MOTRIN PRNF31.9 Bipolar disorder, unspecifiedComments: COUNSELING AND REASSURANCE CONTINUE PRESCRIBED MEDICATIONS RELAXATION TECHNIQUES DISCUSSED COUNSELEDRE: STRESSORS IN LIFEH65.23 Chronic serous otitis media, bilateralNew Medication:Ciprofloxacin HCL 500 mg - 1 tab by mouth twice a dayFluconazole 150 mg - 1 tab by mouth today and Repeat On Last Day Of AntibioticsComments:INCREASE PO FLUID USE ANTIHISTAMINE PRN SECOND HAND SMOKING AVOIDANCE
--- OUTSIDE RECORDS SUMMARY | 2018-08-30 13:50 | XMS REPORT | Continuity of Care Document ---
:1970 External Reference #:[id number] Author Name Zackary Lee N.P. Address [address] [place] [address] Care Team Providers Name Role Phone Staci Colindres M.D. 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 Tablets Quetiapine Fumarate 1 by mouth twice a 60tabs F31.9 [facility] 25mg day M., M.D. Tablets Venlafaxine HCL one tab twice 30tabs F31.9 [facility] 08/16/2018 37.5mg daily M., M.D. Tablets Acidophilus Probiotic 1 tab by mouth 42tabs J18.0 [facility], [facility] 07/03/2018 Complex three times a day M., M.D. Tablets a day after meals Cephalexin 1 tab by mouth 30tabs J18.0 [facility] 07/03/2018 500mg Tablets three times a day M., M.D. Ciprofloxacin HCL 1 tab by mouth 10tabs J18.0 [facility] 07/03/2018 750mg every day M., M.D. Tablets Azithromycin 1 tab by mouth 10tabs J20.9 [facility] 06/09/2018 500mg every day x 10 M., M.D. Tablets days Nicoderm CQ apply patch to 42units G47.00 [facility] 05/19/2018 21mg/24HR skin in new area M., M.D. Patches 24HR daily after removal of old patch Mucinex 1 tab by mouth 30tabs J20.9 [facility] 05/19/2018 600mg Tablets ER twice a day M., M.D. 12HR Benzonatate 1 cap by mouth 60caps J20.9 [facility] 05/19/2018 100mg every 4 hours as M., M.D. Capsules needed AT Night Cyclobenzaprine HCL take one tablet by 90tabs [facility] 04/05/2018 10mg mouth three times M., M.D. Tablets a day as needed Omeprazole 1 by mouth every 30caps R10.84 [facility] 03/08/2018 40mg Capsules day M., MBabarDBabar Caruso 1 tab by mouth 90tabs R10.84 [facility] 03/08/2018 1gm Tablets three times a day Gina MBabarD. before meals Magnesium Citrate 1 Bottle Equiv To 592ml K59.00 [facility], [facility] 03/01/2018 Approx 300ML PO X Gregor Fuentes.D. 1.745GM/30ML Solution Once If No BM In 4 Hours Repeat Lactulose take 15 2838ml K59.00 [facility] 02/15/2018 10GM/15ML milliliters By Nadja Fuentes Solution Mouth every day (maximum dose per day 15 ml) Senna S 2 tab by mouth 120tabs K59.00 [facility] 02/15/2018 8.6-50mg Tablets twice a day every M., M.D. evening Claritin 1 by mouth every 30tabs J01.40 [facility] 02/08/2018 10mg Tablets day M., M.D. Amlodipine Besylate Take One Tablet By 90tabs I10 [facility] 12/08/2017 10mg Mouth Every Day M., M.D. Tablets I73.00 Acetaminophen 2 tab by mouth 180tabs M51.37 [facility]2017 500mg Tablets three times a day M.D. as needed M79.606 R10.84 [facility] Handi[employer] inhale the contents 90caps J44.9 [facility] , 18mcg of one capsule by M.DBabar Capsules mouth every day Ventolin HFA inhale two puffs by 36units J44.9 [facility] , 108(90Base) mouth every 4 hours M.D. mcg/Act Aerosol as needed Lisinopril Take One Tablet By 90tabs I10 [facility] , 2.5mg Tablets Mouth Every Day M.D. History Medications Alprazolam 1 tab by mouth 90tabs G47.00 [facility] 06/09/2018 - 0.5mg Tablets 3x a day as M., M.D. 08/15/2018 needed Levaquin 1 by mouth 10tabs J20.9 [facility] 05/19/2018 - 750mg Tablets every day M., M.D. 06/08/2018 Alprazolam 1 tab by mouth 21tabs G47.00 [facility] 05/19/2018 - 0.5mg Tablets twice a day as M., M.D. 06/09/2018 needed Nortriptyline HCL 2 cap by mouth 60caps G47.00 [facility], [facility] 04/05/2018 - 50mg at bedtime M., M.D. 05/18/2018 Capsules Methocarbamol 1 tab by mouth 90tabs M25.511 [facility], [facility] 04/05/2018 - 750mg Tablets three times a M., M.D. 04/04/2018 day as needed Azithromycin 1 tab by mouth 10tabs J20.9 [facility] 03/22/2018 - 500mg Tablets every day x 10 M., M.D. 04/04/2018 days Nortriptyline HCL 1 cap by mouth 30caps G47.00 [facility] 03/08/2018 - 75mg at bedtime M., M.D. 04/05/2018 Capsules Azithromycin 1 tab by mouth 10tabs J20.9 [facility] 02/15/2018 - 500mg Tablets every day x 10 M., M.D. 02/25/2018 days Benzonatate 1 cap by mouth 60caps J20.9 [facility] 02/15/2018 - 100mg Capsules every 4 hours M., M.D. 03/07/2018 as needed Azithromycin z kimberly uad 6tabs J20.9 [facility] 02/08/2018 - 250mg Tablets M., M.D. 02/13/2018 Prednisone 2 tabs po qd x 21units J20.9 [facility] 02/08/2018 - 5mg (21) TBPK 3 days then 1 M., M.D. 03/07/2018 tab po qd x one week , then one tab po qod for 2 weeks Trazodone HCL 1/2-1 tab by 30tabs G47.00 Staci Colindres 12/29/2017 - 100mg Tablets mouth every M., M.D. 03/08/2018 night Cyclobenzaprine HCL 1 tab by mouth 90tabs M51.37 Staci Colindres 12/08/2017 - 10mg three times a M., M.D. 03/07/2018 Tablets day as needed for muscle spasms M79.606 R10.84 Ibuprofen take one tablet 90tabs M51.37 Staci Colindres, - 600mg by mouth every 8 M.D. 03/07/2018 Tablets hours as needed for pain M79.606 R10.84 Amlodipine Besylate take one tablet by Staci Colindres, - 5mg mouth every day M.D. 12/08/2017 Tablets Immunizations Description No Information Available Vital Signs Date Vital Result Comment 08/16/2018 2:17pm BP Systolic 132 mmHg BP [...] Date Facility Test Result H/L Range Note Urine Drug 08/16/2018 [facility] ALW-Phbot-0-C <pending> [facility] ooh Ethyl Glucuronide <pending> Laboratory test 05/01/2018 [facility] Surgical SEE RESULT 1, 2 finding Pathology BELOW Laboratory test 05/01/2018 [facility] Clotest SEE RESULT 3, 4 finding BELOW BUN/Creat/GFR 03/02/2018 [facility] Poc Blood Urea 12 mg/dL N 8-26 Nitrogen Poc Creatinine 0.7 mg/dL N 0.6-1.3 5 Poc BUN/Creatinine Ratio 17.1 N 8-20 Egfr Non- 89.3 >60 Egfr 108.1 >60 6 Laboratory test finding 12/15/2017 [facility] Esr 3 mm/h (0-20) [address] (607)- - 25 Hydroxy Vit D @ 28 ng/mL Low (31-100) 7 Lipid Extended Panel 12/15/2017 [facility] Appearance CLEAR (Clear) [address] (607)- - Cholesterol @ 159 mg/dL (0-200) Triglyceride @ 185 mg/dL (30-200) HDL Cholesterol @ 31 mg/dL Low (>40) 8 Chol/HDL Ratio 5.1 RATIO 9 Direct LDL @ 105 mg/dL (<130) 10 VLDL (Calc) 23 mg/dL (0-30) Laboratory 12/15/2017 [facility] TSH,Ultrasensitive @ 1.220 (0.360- 4.170) test finding [address] mIU/L (607)- - CMP 12/15/2017 [facility] Sodium 143 (136-145) [address] mmol/L [...] >60 ml/min/1.73m2 (>59) GFR Interpretation <SEE NOTE> 11 CBC With Diff 12/15/2017 [facility] WBC 6.6 10*3/uL (4.1-11.0) [address] (607)- - RBC 4.24 10*6/uL (4.00-5.40) HGB 12.6 g/dL (12.0-16.0) HCT 37.5 % (36.0-47.0) MCV 88.4 fL (80.0-95.0) MCH 29.6 pg (27.0-32.0) MCHC 33.5 g/dL (32.0-36.0) RDW 15.6 % High (10.5-14.5) PLT 310 10*3/uL (150-450) MPV 8.3 fL (7.1-10.7) Neut % 58.7 % (35.0-75.0) Lymph % 29.6 % (16.0-52.0) [place] % 6.8 % (0.0-8.0) Eos % 3.8 % (0.0-5.0) Baso % 1.1 % (0.0-4.0) Neut # 3.9 10*3/uL (1.8-7.7) Lymph # 2.0 10*3/uL (1.2-4.8) [place] # 0.4 10*3/uL (0.0-0.8) Eos # 0.3 10*3/uL (0.0-0.5) Baso # 0.1 10*3/uL (0.0-0.2) 1 [id number] 2 SEE RESULT BELOW Name: ROZ ROBINS : [address]: Wm East MD Acct: [id number] Unit: [id number] AGE: 47 Location: [facility] Re05/01/18 SEX: F Status: DEP REF SPEC: [id number] [place]: 05/01/[address] [facility] [address]: Wm East MD REQ: [id number] RECD: 05/01/18 STATUS: JUAN FREEMAN DR: Zackary Lee ANODE ADJUSTER _ ORDERED: LEVEL 4/2, IMMUNO-FIRST COMMENTS: [id number] ADDENDUM Addendum: An immunohistochemical stain for Helicobacter [...] CONTINUED ON NEXT PAGE DEPARTMENT OF PATHOLOGY, [address] [place] [address] Gian Mclain M.D. Director [facility] # [id number] RUN DATE: 05/03/18 [facility] LAB LIVE PAGE 2 Patient: ROZ ROBINS [id number] (Continued) GROSS DESCRIPTION (Continued) GROSS DESCRIPTION 1. [...] 1123 END OF REPORT DEPARTMENT OF PATHOLOGY, [address] [place] [address] Gian Mclain M.D. Director [facility] # [id number] 3 [id number] SEE RESULT BELOW Name: ROZ ROBINS : [address]: Wm East MD Acct: [id number] Unit: [id number] AGE: 47 Location: [facility] Re05/01/18 SEX: F Status: DEP REF SPEC: [id number] [place]: 05/01/18-[address] [facility] [address]: Wm East MD REQ: [id number] RECD: 05/01/18-1221 STATUS: ROCIO FREEMAN DR: Staci Colindres MD _ SOURCE: GAS ANTRUM SPDESC: ORDERED: Clotest COMMENTS: [id number] Procedure Result Reported Site Clotest Final 05/02/18- 0743 ML Clotest Negative * ML - Main Lab . END OF REPORT DEPARTMENT OF PATHOLOGY, [address] [place] [address] Gian Mclain M.D. Director [facility] # [id number] 5 Literacy Specialist: [id number] 6 Because ethnic data is not always readily [...] 15-29 5 Kidney failure <15 (or dialysis) 7 A REVIEW OF THE LITERATURE SUGGESTS THE FOLLOWING RANGES FOR THE CLASSIFICATION OF 25-OH VITAMIN D STATUS: VITAMIN D STATUS 25-OH VITAMIN D DEFICIENCY <20 NG/ML INSUFFICIENCY 20-30 NG/ML SUFFICIENCY 31 - 100 NG/ML TOXICITY > 100 NG/ML A PEDIATRIC REFERENCE RANGE HAS NOT BEEN ESTABLISHED USING THIS METHOD. 8 PER NCEP ATP III GUIDELINES: RESULTS LOWER THAN 40 MG/DL ARE SUGGESTIVE OF INCREASED RISK FOR CORONARY ARTERY DISEASE. RESULTS > OR=TO 60 MG/DL ARE CONSIDERED A NEGATIVE RISK FACTOR. 9 INTERPRETATION OF CHOL-HDL RATIO CHD RISK FEMALE MALE VERY HIGH >8.3 >14.3 HIGH 5.6- 8.3 6.7- 14.3 AVERAGE 3.7- 5.6 4.0- 6.7 BELOW AVERAGE 2.5- 3.7 2.7- 4.0 PROTECTED <2.5 <2.7 10 PER NCEP ATP III GUIDELINES: OPTIMAL < 100 NEAR OPTIMAL 100 - 129 BORDERLINE HIGH 130 - 159 HIGH 160 - 189 VERY HIGH > 189 11 NORMAL KIDNEY FUNCTION OR MILD DISEASE - GFR >OR=60 CHRONIC KIDNEY DISEASE - GFR 15 - 59 RENAL FAILURE - GFR <15 Est. GFR calculation based on the MDRD study equation, which assumes a steady state for creatinine. Est. GFR should not be used for medication dosing. Procedures Date Code Description Status 07/03/2018 62006 Spirometry Completed 07/03/2018 69908 Tympanometry Completed 06/09/2018 20141 Spirometry Completed 06/09/2018 13104 Tympanometry Completed 05/19/2018 84746 Spirometry Completed 05/19/2018 29710 Tympanometry Completed 02/15/2018 17188 Spirometry Completed 02/15/2018 82793 Spirometry Completed 02/15/2018 97254 Tympanometry Completed 02/15/2018 10140 Tympanometry Completed 02/08/2018 49218 Spirometry Completed 02/08/2018 20475 Tympanometry Completed 12/08/2017 83081 Visual Screening Test Completed 12/08/2017 51606 EKG Completed 12/08/2017 51196 Audiometry, B[place], Screening Completed 04/18/2012 [id number] Colonoscopy Completed Encounters Type Date Location Provider Dx Diagnosis Office Visit 08/16/2018 [facility] Zackary Lee, R10.84 Generalized 2:45p N.P. abdominal pain K59.00 Constipation, unspecified J44.1 [...] Bipolar disorder, unspecified Office Visit 07/03/2018 3:15p [facility] Zackary Lee, R10.84 Generalized N.P. abdominal pain [...] Bronchopneumonia, unspecified organism Office Visit 06/09/2018 2:30p [facility] Zackary Lee, R10.84 Generalized N.P. abdominal [...] in right shoulder Office Visit 05/19/2018 2:45p [facility] Zackary Lee, R10.84 Generalized N.P. abdominal [...] in right shoulder Office Visit 04/05/2018 8:45a [facility] Zackary Lee, R10.84 Generalized N.P. abdominal [...] in right shoulder Office Visit 03/08/2018 10:30a [facility] Zackary Lee, R10.84 Generalized N.P. abdominal [...] right bundle-branch block Office Visit 03/01/2018 2:30p [facility] Zackary Lee, R10.84 Generalized N.P. abdominal [...] right bundle-branch block Office Visit 02/15/2018 9:30a [facility] Zackary Lee, M25.522 Pain in left [...] Generalized abdominal pain Office Visit 02/08/2018 9:30a [facility] Zackary Lee, M25.522 Pain in left [...] of caregiver refusal Office Visit 12/29/2017 9:15a [facility] Staci Colindres I10 Essential ( primary) [...] in left elbow Office Visit 12/15/2017 10:00a [facility] JensStaci zimmerman I10 Essential ( primary) Nadja Fuentes hypertension [...] in left elbow Office Visit 12/08/2017 10:30a [facility] Staci Colindres I10 Essential ( primary) Nadja [...] index (BMI) 27.0-27.9, adult Plan of Treatment Future Appointment(s):08/25/2018 2:00 pm - Zackary Lee, N.P. at [facility]08/16/2018 - Zackary Lee N.P.R10.84 Generalized abdominal painComments: VOKXOMVZY11.00 Constipation, unspecifiedComments:MOM OR MIRALAX PRNHIGH FIBER DIETINCREASE PO BWVGDD78.1 Chronic obstructive pulmonary disease with (acute) exacerbatComments:INCREASE PO UIFMXIPIJY28.03 Otalgia, bilateralComments: INCREASE PO FLUIDTYLENOL OR MOTRIN PRNANTIHISTAMINE PCVEAAUT07.93 Otitis media, unspecified, bilateralComments:INCREASE PO FLUID TYLENOL OR MOTRIN PRN ANTIHISTAMINE PRNR05 CoughComments:INCREASE CLEAR LIQUIDSSTEAMGARGLE WARM SALT H2O TID ROBITUSSIN DM PRNJ20.9 Acute bronchitis, unspecifiedComments:INCREASE PO CLKQYYATPQ58.2 Mixed hyperlipidemiaComments:DIET REVIEWED CONTINUE DIETWT LOSSF/U LAB FBWR06.02 Shortness of zlkofeM57.606 Pain in leg, unspecifiedComments:TYLENOL OR MOTRIN PRN EXERCISE/HEAT/MESSAGE DUR DIZAZTBJ20.37 Other intervertebral disc degeneration, lumbosacral regionComments :EXERCISE/HEAT /MESSAGEAVOID HEAVY LIFTING WT LOSSTYLENOL OR MOTRIN PRN DUR RXIMNHEH88.17 Radiculopathy, lumbosacral regionComments:EXERCISE/HEAT /MESSAGE AVOID HEAVY LIFTING WT LOSS TYLENOL OR MOTRIN PRN DUR POSRXZFF21.9 Polyosteoarthritis, unspecifiedComments:EXERCISE/HEAT/MESSAGETYLENOL OR MOTRIN PRNAVOID HEAVY LIFTINGWT LOSS DUR SCKTHORC39.210 Nicotine dependence, cigarettes , uncomplicatedComments:SMOKING CESSATION ODLNESCHVPER61.00 Insomnia, unspecifiedNew Medication:Zolpidem Tartrate 5 mg - one tab po qhsComments: COUNCELLING AND REASSURANCE RELAXATION TECHNIQUES DISCUSSED COUNSELED RE: STRESSORS IN LIFE TYLENOLPM OR MOTRIN PM PRN DUR KNYWBHDU28 Functional dyspepsiaComments:AVOID CAFFEINE, ETOH AND SPICY FOODSTUMS OR MYLANTA PRN CALL WITH PROBLEMS OR CONCERNSTOBACCO USE DMPCNFMKNT11.21 Alcohol dependence, in remissionComments:OBSERVE COUNCELLING AND REASSURANCEF/[place] [facility] [facility] [place] PRNL20.9 Atopic dermatitis, unspecifiedComments:SKIN CARE INSTRUCTIONS LOTION OR BABY OIL 2-3 APPLICATION PER DAYUSE MOISTURIZING SOAPAVOID PROLONGED WATER EXPOSUREAVOID USING HOT WATER IN ERXCIPT52.9 Allergic rhinitis, unspecifiedComments:INCREASE PO FLUID USE ANTIHISTAMINE PRN SECOND HAND SMOKING AVOIDANCE SMOKING XPJAIBDQRD07.522 Pain in left elbowComments:ENYHLOFJO41.9 Vitamin D deficiency, unspecifiedComments:INCREASE EXPOSURE TO SUNREVIEW OF DIETI45.10 Unspecified right bundle-branch blockComments:STABLE AND ASYMPTOMATICF/U WITH CARDIOLOGY PRNM25.511 Pain in right shoulderComments: EXERCISE/HEAT /MESSAGE AVOID HEAVY LIFTINGTYLENOL OR MOTRIN PRNF31.9 Bipolar disorder, unspecifiedNew Medication:Quetiapine Fumarate 25 mg - 1 by mouth twice a dayVenlafaxine HCL 37.5 mg - one tab twice dailyComments:COUNSELING AND REASSURANCE CONTINUE PRESCRIBED MEDICATIONS RELAXATION TECHNIQUES DISCUSSED COUNSELEDRE: STRESSORS IN LIFE
[2018-08-30 13:52] VITALS: BP 126/79
[2018-08-30] MEDS ORDERED: Ibuprofen TAB* 600 MG PO ONE (15:06)
--- NOTE | 2018-08-30 16:19 | UC ---
Knee Pain HPI - History of Current Complaint Chief Complaint: UCLowerExtremity Stated Complaint: RT KNEE INJURY Time Seen by Provider: 08/30/18 15:30 Hx Last Menstrual Period: hysterectomy Pain Intensity: 10 - Allergies/Home Medications Allergies/Adverse Reactions: Allergies Allergy/AdvReac Type Severity Reaction Status Date / Time amoxicillin Allergy Intermediate Hives Verified 08/30/18 13:52 Penicillins Allergy Intermediate Hives Verified 08/30/18 13:52 Home Medications: Home Medications QUEtiapine TAB* [Seroquel 25 MG TAB*] 25 mg PO BEDTIME 08/30/18 [History Confirmed 08/30/18] Venlafaxine EXT RELEASE CAP* [Effexor Xr CAP*] 37.5 mg PO DAILY 08/30/18 [ History Confirmed 08/30/18] Zolpidem TAB* [Ambien*] 10 mg PO BEDTIME 08/30/18 [History Confirmed 08/30/18] PMH/Surg Hx/FS Hx/Imm Hx - Surgical History Surgical History: Yes Surgery Procedure, Year, and Place: 8 back surguries. hysterectomy - Social History Alcohol Use: Rare Substance Use Type: None Smoking Status (MU): Heavy Every Day Tobacco Smoker Length of Time of Smoking/Using Tobacco: 35 Physical Exam Vital Signs: Initial Vital Signs Temp 96.9 F 08/30/18 13:47 Pulse 71 08/30/18 13:47 Resp 20 08/30/18 13:47 BP 126/79 08/30/18 13:47 Pulse Ox 100 08/30/18 13:47 Knee Pain Course/Dx - Differential Dx/Diagnosis Provider Diagnosis: Effusion, right knee, Right knee pain Discharge - Sign-Out/Discharge Documenting (check all that apply): Patient Departure All imaging exams completed and their final reports reviewed: Yes - Discharge Plan Condition: Stable Disposition: HOME Prescriptions: HYDROcodone/ACETAMIN 5-325 MG* [[place] 5-325 TAB*] 1 tab PO Q4H PRN #20 tab MDD 6 PRN Reason: Pain Patient Education Materials: Swollen Knee Joint (ED), Knee Pain (ED), Crutch Instructions (ED) Referrals: Staci Colindres MD [Primary Care Provider] - Tobias Gómez MD [Medical Doctor] - [facility] [Provider Group] Additional Instructions: FOLLOW UP WITH ORTHOPEDICS OR SPORTS MEDICINE. GET RECHECKED SOONER IF YOUR CONDITION WORSENS OR ANY QUESTIONS OR CONCERNS. - Billing Disposition and Condition Condition: STABLE Disposition: Home
== END 2018-08-30 16:30 | disposition home or self-care (01) ==
LOC: UCEAST 13:40
DX: M25.461 Effusion, right knee (principal); M25.561 Pain in right knee; Z88.0 Allergy status to penicillin
CPT/HCPCS: 99213; A9270-GY; G0463